=== PATIENT | female | born 1995 | race Two or more races ===

== ENCOUNTER 2021-10-28 12:53 | Emergency (ER) | payer OTHER ==
[~2021-10-28] VITALS: Ht 162.6 cm; Wt 53.1 kg
== END 2021-10-28 19:12 | disposition home or self-care (01) ==
LOC: ER 12:53
DX: O21.0 Mild hyperemesis gravidarum (principal); Z3A.13 13 weeks gestation of pregnancy

== ENCOUNTER 2022-03-08 13:08 | Outpatient (CLI) | payer OTHER | END 2022-03-08 13:39 | disposition home or self-care (01) | LOC: NST 13:08 | PROVIDERS: ATTEND Obstetrics & Gynecology | DX: Z34.83 Encounter for supervision of other normal pregnancy, third trimester (principal) ==

== ENCOUNTER 2022-04-04 15:14 | Outpatient (CLI) | payer OTHER | END 2022-04-04 16:27 | disposition home or self-care (01) | LOC: NST 15:14 | PROVIDERS: ATTEND Obstetrics & Gynecology | DX: Z34.83 Encounter for supervision of other normal pregnancy, third trimester (principal) ==

== ENCOUNTER 2022-05-02 14:00 | Inpatient (IN) | payer OTHER ==
[~2022-05-02] VITALS: Ht 162.6 cm; Wt 70.3 kg
[2022-05-11] MEDS ORDERED: INTEGRA F CAPS1 EAC1 PO (11:25)
[2022-05-11] MEDS ORDERED: PRENATAL + DHA1 EAC1 PO (11:26)
== END 2022-05-13 13:54 | disposition home or self-care (01) | DRG 807 ==
LOC: OB/GYN 05-11 11:05 → LDR 05-11 11:05 → OB/GYN 05-11 22:27
PROVIDERS: ADMIT Obstetrics & Gynecology; ATTEND Obstetrics & Gynecology
PROC: 10E0XZZ Delivery of Products of Conception, External Approach (ICD-10-PCS; principal; 2022-05-11)
PROC: 0W8NXZZ Division of Female Perineum, External Approach (ICD-10-PCS; 2022-05-11)
PROC: 4A1HXCZ Monitoring of Products of Conception, Cardiac Rate, External Approach (ICD-10-PCS; 2022-05-11)
DX: O80 Encounter for full-term uncomplicated delivery (principal); Z37.0 Single live birth; Z3A.39 39 weeks gestation of pregnancy; Z20.822 Contact with and (suspected) exposure to COVID-19

== ENCOUNTER → 2022-05-11 | Outpatient (CLI) | payer OTHER ==
[~2022-05-11] MED LIST: INTEGRA F CAPS1 EAC1 PO; PRENATAL + DHA1 EAC1 PO
== END | disposition home or self-care (01) ==
LOC: NST 10:42
PROVIDERS: ATTEND Obstetrics & Gynecology Maternal & Fetal Medicine
DX: Z34.90 Encounter for supervision of normal pregnancy, unspecified, unspecified trimester (principal)